=== PATIENT | female | born 1995 | race Caucasian/White ===

== ENCOUNTER 2016-11-27 08:52 | Emergency (ER) | payer MEDICAID ==
[2016-11-27] MEDS ORDERED: FAMOTIDINE 20 MG TABLET PO ONE (09:11)
[2016-11-27 09:34] LABS: ABSOLUTE EOSINOPHILS # (AUTO) 0.1 10^3/uL (0.0-0.6); ABSOLUTE LYMPHOCYTES (AUTO) 2.2 10^3/uL (0.5-4.7); ABSOLUTE MONOCYTES (AUTO) 0.5 10^3/uL (0.1-1.4); ABSOLUTE NEUT (AUTO) 4.2 10^3/uL (1.7-8.2); BASOPHILS % (AUTO) 0.6 % (0-2); EOSINOPHILS % (AUTO) 0.8 % (0-6); HEMATOCRIT 38.3 % (36.0-47.0); HEMOGLOBIN 13.2 g/dL (12.0-15.5); HGB HCT DIFFERENCE 1.3; LYMPHOCYTES % (AUTO) 31.5 % (13-45); MEAN CORPUSCULAR HEMOGLOBIN 30.9 pg (27.0-33.4); MEAN CORPUSCULAR HGB CONC 34.6 g/dL (32.0-36.0); MEAN CORPUSCULAR VOLUME 89 fl (80-97); MONOCYTES % (AUTO) 7.8 % (3-13); RED BLOOD COUNT 4.28 10^6/uL (3.72-5.28); RED CELL DISTRIBUTION WIDTH 13.1 % (11.5-14.0); SEGMENTED NEUTROPHILS % (AUTO) 59.3 % (42-78); WHITE BLOOD COUNT 7.1 10^3/uL (4.0-10.5)
[2016-11-27 09:56] LABS: ALANINE AMINOTRANSFERASE 21 U/L (9-52); ALBUMIN 4.1 g/dL (3.5-5.0); ALKALINE PHOSPHATASE 60 U/L (38-126); ANION GAP 9 (5-19); ASPARTATE AMINO TRANSFERASE 16 U/L (14-36); BILIRUBIN,DIRECT 0.3 mg/dL (0.0-0.4); BILIRUBIN,TOTAL 0.4 mg/dL (0.2-1.3); BLOOD UREA NITROGEN 10 mg/dL (7-20); CALCIUM 9.4 mg/dL (8.4-10.2); CARBON DIOXIDE 25 mmol/L (22-30); CHLORIDE 104 mmol/L (98-107); GLUCOSE 88 mg/dL (75-110); LIPASE 78.5 U/L (23-300); SODIUM 138.3 mmol/L (137-145); TOTAL PROTEIN 6.9 g/dL (6.3-8.2)
--- NOTE | 2016-11-27 10:08 | ER Document Report ---
ED General - General Chief Complaint: Abdominal Pain Stated Complaint: ABDOMINAL PAIN Time Seen by Provider: 11/27/16 08:58 TRAVEL OUTSIDE OF THE [place] IN LAST 30 DAYS: No - HPI Notes: Patient is a 21-year-old female who presents the ED complaining of intermittent epigastric pain/right upper quadrant pain, nausea w/o vomiting, intermittent diarrhea w/o blood/mucous, vaginal discharge, and home positive urine test. Her last menstrual period was 5-6 weeks ago. Patient has been one other time and has 1 living child with no miscarriages or abortions. She currently does not believe that she has any vaginal bleeding. She is still able to eat and drink, but does have a decreased appetite. The pain does not radiate and is described as a soreness with occasional sharp pain. Pt states that she feels the same way she did when she was the first time. Pt does have a h/o GERD with her last . Pt states that she also has frequency in urination. Patient does admit to smoking but denies any other illicit drug use. Denies any headache, fever, URI, sore throat, chest pain, palpitations, syncope, cough, shortness of breath, wheeze, dyspnea, vomiting, urinary retention, dysuria, hematuria, or rash. - Related Data Allergies/Adverse Reactions: bupropion [Bupropion] Allergy (Unknown, Verified 11/27/16 09:36) UNKNOWN guanfacine HCl [From Tenex] Allergy (Unknown, Verified 11/27/16 09:36) UNKNOWN diphenhydramine [From Benadryl] Allergy (Verified 11/27/16 09:36) hydroxyzine HCl [From Vistaril] Allergy (Verified 11/27/16 09:36) UNKNOWN hydroxyzine pamoate [From Vistaril] Allergy (Verified 11/27/16 09:36) UNKNOWN ondansetron [From Zofran (as hydrochloride)] Allergy (Verified 11/27/16 09:36) ziprasidone HCl [From Geodon] Allergy (Verified 11/27/16 09:36) UNKNOWN ziprasidone mesylate [From Geodon] Allergy (Verified 11/27/16 09:36) UNKNOWN nickel [Nickel] Adverse Reaction (Unknown, Verified 11/27/16 09:36) RASH Past Medical History - Social History Smoking Status: Current Every Day Smoker Chew tobacco use (# tins/day): No Frequency of alcohol use: None Drug Abuse: None Family History: Reviewed & Not Pertinent - Past Medical History Cardiac Medical History: Denies: Hx Coronary Artery Disease, Hx Heart Attack, Hx Hypertension Pulmonary Medical History: Reports: Hx Asthma Denies: Hx Bronchitis, Hx COPD, Hx Pneumonia Neurological Medical History: Denies: Hx Cerebrovascular Accident, Hx Seizures Musculoskeltal Medical History: Denies Hx Arthritis Psychiatric Medical History: Reports: Hx Depression - Immunizations Hx Diphtheria, Pertussis, Tetanus Vaccination: Yes Review of Systems - Review of Systems Notes: REVIEW OF SYSTEMS: CONSTITUTIONAL : Denies fever, chills, or sweats. Denies recent illness. EENT: Denies eye, ear, throat, or mouth pain or symptoms. Denies nasal or sinus congestion or discharge. Denies throat, tongue, or mouth swelling or difficulty swallowing. CARDIOVASCULAR: Denies chest pain. Denies palpitations or racing or irregular heart beat. Denies ankle edema. RESPIRATORY: Denies cough, cold, or chest congestion. Denies shortness of breath, difficulty breathing, or wheezing. GASTROINTESTINAL: see hpi GENITOURINARY: Denies difficulty urinating, painful urination, burning, frequency, blood in urine, or discharge. FEMALE GENITOURINARY: see hpi MUSCULOSKELETAL: Denies back or neck pain or stiffness. Denies joint pain or swelling. SKIN: Denies rash, lesions or sores. NEUROLOGICAL: Denies confusion or altered mental status. Denies passing out or loss of consciousness. Denies dizziness or lightheadedness. Denies headache. Denies weakness or paralysis or loss of use of either side. Denies problems with gait or speech. Denies sensory loss, numbness, or tingling. Denies seizures. PSYCHIATRIC: Denies anxiety or stress. Denies depression, suicidal ideation, or homicidal ideation. ALL OTHER SYSTEMS REVIEWED AND NEGATIVE. Dictation was performed using [employer] voice recognition software Physical Exam - Vital signs Vitals: Temp Pulse Resp BP Pulse Ox 98.7 F 69 12 115/63 100 11/27/16 08:52 11/27/16 08:52 11/27/16 08:52 11/27/16 08:52 11/27/16 08:52 Notes: PHYSICAL EXAMINATION: GENERAL: Well-appearing, well-nourished and in no acute distress. LUNGS: Breath sounds clear to auscultation bilaterally and equal. No wheezes rales or rhonchi. HEART: Regular rate and rhythm without murmurs ABDOMEN: Soft, nondistended abdomen. No guarding, no rebound. No masses appreciated. Normal bowel sounds present. CVA tenderness negative bilaterally. + mild tenderness to the RUQ and epigastrum Female : No inguinal adenopathy. External genitalia without erythema. + skin colored round papules noted. Vaginal mucosa pink white milky discharge. Difficult to visualize cervix due to abundant milky discharge. Uterus is smooth. No adnexal tenderness. Musculoskeletal: LE's b/l: FROM to passive/active. Strength 5+/5. Extremities: No cyanosis/clubbing/edema b/l. Peripheral pulses 2+. Capillary refill less than 3 seconds. NEUROLOGICAL: Normal speech, normal gait. Normal sensory, motor exams PSYCH: Normal mood, normal affect. SKIN: Warm, Dry, normal turgor, no rashes or lesions noted. Course - Re-evaluation Re-evalutation: 11/27/16 11:22 Pepcid given, no changes in symptoms. Pt states that she feels like she is just hungry and wants to leave sooner than later 11/27/16 12:12 Patient is an afebrile, well-hydrated, 21-year-old female who presents the ED with a 5 week that was confirmed today, BV, and Trich. Vitals are stable. PE otherwise unremarkable. CBC, CMP, lipase, urinalysis are unremarkable. Serum qualitative was positive. TVUS shows gestational sack 5wk 2d with serum quant of 3,213.30. US RUQ/Epigastrum unremarkable. Wet mount shows BV and Trichomonas. patient is tolerating p.o. intake. Pepcid 20 mg was given p.o. today. Zithromax 1 g and Rocephin 250 mg given today as precautionary. Chlamydia/gonorrhea test pending. I would like patient to call in 1 day for her results unless someone calls prior. Low suspicion/risk for acute appendicitis, bowel obstruction, acute cholecystitis, acute cholangitis, perforated diverticulitis, incarcerated hernia, pancreatitis , perforated ulcer, peritonitis, sepsis, pelvic inflammatory disease, ectopic , tubo-ovarian abscess, ovarian torsion, or other systemic emergent condition at this time. Patient is aware that her condition can change from initial presentation and she needs to monitor symptoms closely and seek medical attention if any acute changes. I will send her home with yl to take BID x7 days. Conservative measures otherwise for symptoms. Recheck with OBGYN in 2 -3 days. Recheck with your PCM this week. Return to the ED with any worsening/ concerning symptoms otherwise as reviewed in discharge. Patient is in agreement. - Vital Signs Vital signs: Temp Pulse Resp BP Pulse Ox 98.7 F 69 12 115/63 100 11/27/16 08:52 11/27/16 08:52 11/27/16 08:52 11/27/16 08:52 11/27/16 08:52 - Laboratory Result Diagrams: 11/27/16 09:15 11/27/16 09:15 Laboratory results interpreted by me: 11/27/16 11/27/16 09:15 09:15 Serum HCG, Qual POSITIVE H Beta HCG, Quant 3213.30 H Procedures - Pelvic Exam Pelvic exam Time completed: 11:20 Cultures obtained: Yes Wet prep obtained: Yes POC sent to lab: Yes Bimanual exam performed: Yes - neg Witnessed by: Female PCT Discharge - Discharge Clinical Impression: Bacterial vaginosis, Trichomonas infection Qualifiers: Weeks of gestation: less than 8 weeks Qualified Code(s): Z3A.01 - Less than 8 weeks gestation of Condition: Stable Disposition: HOME, SELF-CARE Instructions: Vaginosis, Bacterial ([facility]), Trichomonas Infection ([facility]), ([facility]), Metronidazole ([facility]) Additional Instructions: Push fluids (i.e. water, cranberry juice) Proper hygenic technique Keep the skin clean Safe sexual practices with condoms everytime Tylenol/ibuprofen as needed Check in with the health department this week for further testing and care* Your chlamydia/Ghon test are pending and you will be notified if positive results; you may call in 1 day for the results as well You have been given follow up instructions including low cost follow up with one of the local primary care offices. Follow up with them tomorrow for further care and reevaluation. Return immediately if symptoms worsen F/u with your PCM in 2-3 days for a recheck Return to the ED with any development of LEIJA/fever, trouble with vision, eye redness, worsening pain, urethral discharge, urinary retention, blood in the urine, flank pain, abdominal pain, n/v, Chest Pain, shortness of breath, joint pains, trouble breathing, or any other worsening/concerning symptoms as needed otherwise. Prescriptions: Metronidazole [Flagyl] 500 mg PO BID #14 tablet Referrals: [facility] [Provider Group] - Follow up as needed [facility] [Provider Group] - Follow up as needed [facility] [Provider Group] - Follow up in 1 week
--- NOTE | 2016-11-27 10:57 | RADIOLOGY REPORT (SQ) ---
EXAM DESCRIPTION: U/S ABDOMEN LIMITED W/O DOP COMPLETED DATE/TIME: 11/27/2016 10:45 am REASON FOR STUDY: RUQ/Epigastric pain COMPARISON: None. TECHNIQUE: Dynamic and static grayscale images acquired of the right upper quadrant and recorded on PACS. Additional selected color Doppler and spectral images recorded. LIMITATIONS: Study limited due to acoustical interference from fat or from air in the bowel. FINDINGS: PANCREAS: Visualized pancreas and duct normal. Parts of pancreas poorly seen secondary to acoustical interference from fat or from air in the bowel. LIVER: No masses. Echotexture normal. LIVER VASCULATURE: Normal directional flow of the main portal vein and hepatic veins. GALLBLADDER: No stones. Normal wall thickness. No pericholecystic fluid. ULTRASOUND-DETECTED MALONEY'S SIGN: Negative. INTRAHEPATIC DUCTS AND COMMON DUCT: CBD and intrahepatic ducts normal caliber. No filling defects. INFERIOR VENA CAVA: Normal flow. AORTA: No aneurysm. RIGHT KIDNEY: Normal size. Normal echogenicity. No solid or suspicious masses. No hydronephrosis. No calcifications. PERITONEAL CAVITY AND RIGHT PLEURAL SPACE: No ascites or effusions. OTHER: No other significant finding. IMPRESSION: NORMAL RIGHT UPPER QUADRANT ULTRASOUND. PANCREAS PARTIALLY OBSCURED BY GAS. TECHNICAL DOCUMENTATION: JOB ID: [id number] [employer]- All Rights Reserved
--- NOTE | 2016-11-27 11:02 | RADIOLOGY REPORT (SQ) ---
EXAM DESCRIPTION: U/S OB TRANSVAG W/DOPPLER COMPLETED DATE/TIME: 11/27/2016 10:52 am REASON FOR STUDY: vaginal discharge, recent + preg test COMPARISON: None. TECHNIQUE: Transvaginal static and realtime grayscale images acquired of the pelvis. Additional lucy cted spectral and color Doppler images recorded. All images stored on PACs. bHCG: Not available. LIMITATIONS: None. FINDINGS: UTERUS: No masses. No anomalies. GESTATIONAL SAC: Small gestational sac corresponding to a 5 week 2 day gestation. YOLK SAC: No. POLE: No. RIGHT ADNEXA: Normal ovary with normal vascular flow. No adnexal free fluid. No adnexal masses. LEFT ADNEXA: Normal ovary with normal vascular flow. No adnexal free fluid. No adnexal masses. FREE FLUID: None. OTHER: No other significant finding. IMPRESSION: POSSIBLE EARLY INTRAUTERINE . BHCG LEVEL NOT AVAILABLE FOR CORRELATION WITH US FINDINGS. CONSIDER F/U BHCG AND/OR ULTRASOUND FOR VERIFICATION AND TO EXCLUDE ECTOPIC . Trimester of : First - 0 to 13 weeks. TECHNICAL DOCUMENTATION: JOB ID: [id number] [employer]- All Rights Reserved
[2016-11-27] MEDS ORDERED: CEFTRIAXONE INJ 1000 MG VIAL IM ONE (11:21)
[2016-11-27] MEDS ORDERED: LIDOCAINE 1% INJ-PF (10 MG/ML) 30 ML SDV INJ ONE (11:21)
[2016-11-27] MEDS ORDERED: AZITHROMYCIN 250 MG TABLET PO ONE (11:21)
[2016-11-27 11:32] LABS: ADD ON TESTING BLD IN LAB ACKNOWLEDGE
[2016-11-27 11:34] LABS: APPEARANCE,URINE CLEAR; BILIRUBIN,URINE NEGATIVE (NEGATIVE); GLUCOSE, URINE NEGATIVE (NEGATIVE); KETONES,URINE NEGATIVE (NEGATIVE); LEUKOCYTE ESTERASE,URINE NEGATIVE (NEGATIVE); NITRITE,URINE NEGATIVE (NEGATIVE); PROTEIN,URINE NEGATIVE (NEGATIVE); URINE SPECIFIC GRAVITY 1.014; UROBILINOGEN,URINE NEGATIVE mg/dL (<2.0)
[2016-11-27 12:26] VITALS: BP 118/59
[2016-11-27 13:37] LABS: CHLAM PCR NOT DETECTED (NOT DETECT)
== END 2016-11-27 12:26 | disposition home or self-care (01) ==
LOC: ER 08:52
DX: N76.0 Acute vaginitis (principal); B96.89 Other specified bacterial agents as the cause of diseases classified elsewhere; A59.01 Trichomonal vulvovaginitis; R10.9 Unspecified abdominal pain; R10.13 Epigastric pain; R11.0 Nausea; N89.8 Other specified noninflammatory disorders of vagina; R35.0 Frequency of micturition; F17.200 Nicotine dependence, unspecified, uncomplicated; Z3A.01 Less than 8 weeks gestation of pregnancy
CPT/HCPCS: 99284; 96372; 36415; 87210; 84702; 83690; 84703; 85025; 80053; 81001; 87491; 87591; 76817; 76705; 93976; J3490 ×2; Q0144; J0696

== ENCOUNTER 2017-03-13 01:32 | Emergency (ER) | payer MEDICAID ==
[2017-03-13] MEDS ORDERED: LIDOCAINE 2% VISCOUS SOLN 20 ML UDCUP PO ONE (02:30)
[2017-03-13] MEDS ORDERED: METOCLOPRAMIDE HCL ORAL SOLN 10 MG/10 ML UDCUP PO ONE (02:30)
[2017-03-13] MEDS ORDERED: MAG HYDROX/AL HYDROX/SIMETH SUSP 30 ML UDCUP PO ONE (02:30)
[2017-03-13] MEDS ORDERED: FAMOTIDINE 20 MG TABLET PO ONE (02:30)
[2017-03-13 02:32] LABS: APPEARANCE,URINE SLIGHTLY-CLOUDY; BILIRUBIN,URINE NEGATIVE (NEGATIVE); COLOR,URINE YELLOW; GLUCOSE, URINE NEGATIVE (NEGATIVE); KETONES,URINE NEGATIVE (NEGATIVE); LEUKOCYTE ESTERASE,URINE NEGATIVE (NEGATIVE); NITRITE,URINE POSITIVE (NEGATIVE); PROTEIN,URINE NEGATIVE (NEGATIVE); URINE SPECIFIC GRAVITY 1.023; UROBILINOGEN,URINE NEGATIVE mg/dL (<2.0)
--- NOTE | 2017-03-13 02:33 | ER Document Report ---
HPI - HPI Pain Level: 3 Notes: Patient is a 22-year-old female who is approximately 20 weeks who presents to the ED complaining of epigastric pain, burning sensation, nasal congestion/discharge, dry nonproductive cough. Patient does have history of GERD and gastritis which she is not taking any medications for. Patient states that after she eats she feels more burning sensation in that area. Patient states that the pain does not radiate otherwise. Patient's URI symptoms have been ongoing 1 week. She is still eating and drinking without any difficulties. She is urinating normally and having normal bowel movements. Patient has not noticed any pelvic cramping, vaginal odor/bleeding/discharge. Denies any headache, fever, neck pain, sore throat, chest pain, palpitations, syncope, shortness of breath, wheeze, dyspnea, nausea/vomiting/diarrhea, urinary retention, dysuria, hematuria, or rash. Pt does continue to have intermittent n/v with her . - ROS Notes: REVIEW OF SYSTEMS: CONSTITUTIONAL : Denies fever, chills, or sweats. Denies recent illness. EENT: see hpi CARDIOVASCULAR: Denies chest pain. Denies palpitations or racing or irregular heart beat. Denies ankle edema. RESPIRATORY: see hpi. Denies shortness of breath, difficulty breathing, or wheezing. GASTROINTESTINAL: see hpi. Denies blood in vomitus, stools, or per rectum. Denies black, tarry stools. Denies constipation. GENITOURINARY: Denies difficulty urinating, painful urination, burning, frequency, blood in urine, or discharge. FEMALE GENITOURINARY: Denies vaginal bleeding, heavy or abnormal periods, irregular periods. Denies vaginal discharge or odor. MUSCULOSKELETAL: Denies back or neck pain or stiffness. Denies joint pain or swelling. SKIN: Denies rash, lesions or sores. NEUROLOGICAL: Denies confusion or altered mental status. Denies passing out or loss of consciousness. Denies dizziness or lightheadedness. Denies headache. Denies weakness or paralysis or loss of use of either side. Denies problems with gait or speech. Denies sensory loss, numbness, or tingling. Denies seizures. ALL OTHER SYSTEMS REVIEWED AND NEGATIVE. Dictation was performed using [employer] voice recognition software - REPRODUCTIVE Reproductive: REPORTS: : - DERM Skin Color: Normal, [place] Past Medical History - Social History Smoking Status: Unknown if Ever Smoked Family History: Reviewed & Not Pertinent Patient has suicidal ideation: No Patient has homicidal ideation: No - Past Medical History Cardiac Medical History: Denies: Hx Coronary Artery Disease, Hx Heart Attack, Hx Hypertension Pulmonary Medical History: Reports: Hx Asthma Denies: Hx Bronchitis, Hx COPD, Hx Pneumonia Neurological Medical History: Denies: Hx Cerebrovascular Accident, Hx Seizures Renal/ Medical History: Denies: Hx Peritoneal Dialysis Musculoskeltal Medical History: Denies Hx Arthritis Psychiatric Medical History: Reports: Hx Depression - Immunizations Hx Diphtheria, Pertussis, Tetanus Vaccination: Yes Vertical Provider Document - CONSTITUTIONAL Agree With Documented VS: Yes Notes: PHYSICAL EXAMINATION: GENERAL: Well-appearing, well-nourished and in no acute distress. A&Ox4 HEAD: Atraumatic, normocephalic. EYES: Pupils equal round and reactive to light, extraocular movements intact, sclera anicteric, conjunctiva are normal. ENT: EAC clear b/l. TM's intact b/l without erythema, fluid, or perforation. Nares patent and with clear discharge. oropharynx mild erythema without exudates. 2+ tonsilar hypertrophy without erythema or exudate. No palatine shift. Uvula midline. No tongue protrusion. No drooling, hoarseness, or airway compromise. Moist mucous membranes. No sinus tenderness. NECK: Normal range of motion, supple without lymphadenopathy. No rigidity/ meningismus. LUNGS: Breath sounds clear to auscultation bilaterally and equal. No wheezes rales or rhonchi. HEART: Regular rate and rhythm without murmurs, rubs, gallops. ABDOMEN: Soft, nontender, nondistended abdomen. No guarding, no rebound. No masses appreciated. Normal bowel sounds present. No CVA tenderness bilaterally. No hepatosplenomegaly. NEUROLOGICAL: Normal speech, normal gait. Normal sensory, motor exams PSYCH: Normal mood, normal affect. SKIN: Warm, Dry, normal turgor, no rashes or lesions noted. - INFECTION CONTROL TRAVEL OUTSIDE OF THE [place] IN LAST 30 DAYS: No - RESPIRATORY O2 Sat by Pulse Oximetry: 100 Course - Re-evaluation Re-evalutation: 03/13/17 02:36 Patient is an afebrile, well-hydrated, 22-year-old female who presents the ED with suspected GERD as well as acute URI, suspect viral at this time, and UTI. Vitals are stable. PE is otherwise unremarkable. see UA results, UC pending. No labs or imaging warranted at this time based on H&P. GI cocktail was provided which did help/improve symptoms. Pepcid 20 mg was also given p.o. I will send her home with a prescription of Pepcid and carafate which she may use as needed. Low suspicion for any ACS, PE, pneumothorax, pericarditis, dissection, respiratory compromise, acute abdomen, severe dehydration, sepsis, meningitis, or other systemic emergent condition at this time. Patient is aware that her condition can change from initial presentation and she needs to monitor symptoms closely and seek medical attention for any acute changes. Recommend conservative measures for symptoms. Keflex rx for UTI. Recheck with your PCM in 3-5 days. Return to the ED with any worsening/concerning symptoms otherwise as reviewed in discharge. Patient is in agreement. - Vital Signs Vital signs: Temp Pulse Resp BP Pulse Ox 98.7 F 60 16 113/57 L 100 03/13/17 01:42 03/13/17 01:42 03/13/17 01:42 03/13/17 01:42 03/13/17 01:42 Discharge - Discharge Clinical Impression: Acute URI GERD (gastroesophageal reflux disease) Qualifiers: Esophagitis presence: without esophagitis Qualified Code(s): K21.9 - Gastro- esophageal reflux disease without esophagitis UTI (urinary tract infection) Qualifiers: Urinary tract infection type: site unspecified Hematuria presence: without hematuria Qualified Code(s): N39.0 - Urinary tract infection, site not specified Condition: Stable Disposition: HOME, SELF-CARE Instructions: Reflux Disease (GERD) ([facility]), Upper Respiratory Illness ([facility]), Urinary Tract Infection ([facility]) Additional Instructions: Maintain adequate fluid intake Take meds as directed tylenol/ibuprofen as needed over the counter cold medication as needed for symptoms Humidified air may help with a cough F/u: with your PCM in 3-5 days for a recheck Recheck with OBGYN this week. Consider consult with Gastroenterology if needed for ongoing/worsening symptoms as well Return to the ED with any fever, worsening pain, chest pain, palpitations, syncope, worsening LEIJA, neck pain/stiffness, shortness of breath, wheezing, drooling, trouble swallowing/breathing, abdominal pain, n/v/d, rash, or worsening/concerning symptoms otherwise. Prescriptions: Cephalexin Monohydrate [Keflex 500 mg Capsule] 500 mg PO BID #14 capsule Famotidine [Pepcid 20 mg Tablet] 20 mg PO BID #30 tablet Sucralfate [Carafate] 1 gm PO QID PRN #420 ml PRN Reason: [facility]errals[facility]] - Follow up as needed HERMELINDO WEBER MD [ACTIVE STAFF] - Follow up as needed
[2017-03-13] MEDS ORDERED: CEPHALEXIN 500 MG CAPSULE PO ONE (02:41)
[2017-03-13 03:41] VITALS: BP 113/47
== END 2017-03-13 03:41 | disposition home or self-care (01) ==
LOC: ER 01:32
DX: O99.619 Diseases of the digestive system complicating pregnancy, unspecified trimester (principal); K21.9 Gastro-esophageal reflux disease without esophagitis; O23.40 Unspecified infection of urinary tract in pregnancy, unspecified trimester; O99.519 Diseases of the respiratory system complicating pregnancy, unspecified trimester; J06.9 Acute upper respiratory infection, unspecified; J35.1 Hypertrophy of tonsils; J45.909 Unspecified asthma, uncomplicated; O26.899 Other specified pregnancy related conditions, unspecified trimester; R10.13 Epigastric pain; Z3A.00 Weeks of gestation of pregnancy not specified
CPT/HCPCS: 99283; 87086; 81025; 87088; 81001; 87186; J3490 ×4; 36415

== ENCOUNTER 2017-04-04 20:33 | Outpatient (CLI) | payer MEDICAID ==
[2017-04-04 21:05] LABS: APPEARANCE,URINE CLEAR; BILIRUBIN,URINE NEGATIVE (NEGATIVE); COLOR,URINE YELLOW; GLUCOSE, URINE NEGATIVE (NEGATIVE); KETONES,URINE NEGATIVE (NEGATIVE); LEUKOCYTE ESTERASE,URINE TRACE (NEGATIVE); NITRITE,URINE NEGATIVE (NEGATIVE); PROTEIN,URINE NEGATIVE (NEGATIVE); UROBILINOGEN,URINE NEGATIVE mg/dL (<2.0)
[2017-04-04 21:19] LABS: URINE AMPHETAMINES SCREEN NEGATIVE; URINE BARBITURATES SCREEN NEGATIVE; URINE BENZODIAZEPINES SCREEN NEGATIVE; URINE COCAINE SCREEN NEGATIVE; URINE MARIJUANA (THC) SCREEN NEGATIVE; URINE METHADONE SCREEN NEGATIVE; URINE PHENCYCLIDINE SCREEN NEGATIVE
[2017-04-04 21:26] LABS: ABSOLUTE BASOPHILS # (AUTO) 0.1 10^3/uL (0.0-0.2); ABSOLUTE LYMPHOCYTES (AUTO) 2.7 10^3/uL (0.5-4.7); ABSOLUTE MONOCYTES (AUTO) 0.6 10^3/uL (0.1-1.4); ABSOLUTE NEUT (AUTO) 8.2 10^3/uL (1.7-8.2); BASOPHILS % (AUTO) 0.8 % (0-2); EOSINOPHILS % (AUTO) 0.4 % (0-6); HEMATOCRIT 34.2 % (36.0-47.0); HEMOGLOBIN 11.7 g/dL (12.0-15.5); MEAN CORPUSCULAR HEMOGLOBIN 30.8 pg (27.0-33.4); MEAN CORPUSCULAR HGB CONC 34.2 g/dL (32.0-36.0); MEAN CORPUSCULAR VOLUME 90 fl (80-97); MONOCYTES % (AUTO) 4.9 % (3-13); PLATELET COUNT 219 10^3/uL (150-450); RED BLOOD COUNT 3.79 10^6/uL (3.72-5.28); RED CELL DISTRIBUTION WIDTH 13.2 % (11.5-14.0); SEGMENTED NEUTROPHILS % (AUTO) 70.9 % (42-78); TOTAL CELLS COUNTED % (AUTO) 100 %; WHITE BLOOD COUNT 11.6 10^3/uL (4.0-10.5)
[2017-04-04 22:25] LABS: RUBELLA INTERPRETATION NEGATIVE
[2017-04-06 05:40] LABS: HEPATITIS C VIRUS AB <0.1 s/co ratio (0.0-0.9)
[2017-04-06 07:03] LABS: HEPATITS B SURFACE ANTIGEN Negative (Negative)
== END 2017-04-04 21:57 | disposition home or self-care (01) ==
LOC: LC 20:33
PROVIDERS: ATTEND Obstetrics & Gynecology Gynecology
DX: O26.892 Other specified pregnancy related conditions, second trimester (principal); R10.9 Unspecified abdominal pain; E86.0 Dehydration; Z3A.22 22 weeks gestation of pregnancy
CPT/HCPCS: 36415; 80307; 81001; 85025; 86592; 86701; 86762; 86803; 86804; 86850; 86900; 86901; 87340

== ENCOUNTER 2017-05-04 19:33 | Outpatient (CLI) | payer MEDICAID ==
[2017-05-04 20:41] LABS: AMNISURE (ROM) NEGATIVE (NEGATIVE)
[2017-05-04 21:00] LABS: AMORPHOUS SEDIMENT,URINE TRACE /HPF; APPEARANCE,URINE CLOUDY; BILIRUBIN,URINE NEGATIVE (NEGATIVE); COLOR,URINE YELLOW; GLUCOSE, URINE NEGATIVE (NEGATIVE); KETONES,URINE TRACE mg/dL (NEGATIVE); LEUKOCYTE ESTERASE,URINE LARGE (NEGATIVE); NITRITE,URINE NEGATIVE (NEGATIVE); PROTEIN,URINE NEGATIVE (NEGATIVE)
[2017-05-04 21:18] LABS: URINE AMPHETAMINES SCREEN NEGATIVE; URINE BARBITURATES SCREEN NEGATIVE; URINE BENZODIAZEPINES SCREEN NEGATIVE; URINE COCAINE SCREEN NEGATIVE; URINE MARIJUANA (THC) SCREEN NEGATIVE; URINE METHADONE SCREEN NEGATIVE; URINE PHENCYCLIDINE SCREEN NEGATIVE
[2017-05-04] MEDS ORDERED: RINGERS SOLUTION,LACTATED 500 ML IV PRN (21:45)
--- NOTE | 2017-05-04 21:57 | RADIOLOGY REPORT (SQ) ---
EXAM DESCRIPTION: U/S OB LIMITED COMPLETED DATE/TIME: 05/04/2017 9:48 pm REASON FOR STUDY: cervical length, placenta location, presentation COMPARISON: None. TECHNIQUE: Limited transabdominal and transvaginal grayscale ultrasound for evaluation of specific r equested obstetrical parameters. LIMITATIONS: None. FINDINGS: CERVICAL LENGTH: 3.2 cm. Closed. SNEHA: Fluid not assessed. FHR: Cardiac activity not documented. PRESENTATION: Cephalic. OTHER: Placenta anterior without evidence of abruption. No evidence of previa. IMPRESSION: LIMITED OBSTETRICAL ULTRASOUND WITH MEASURED PARAMETERS DELINEATED ABOVE. Trimester of : Second trimester - 13 weeks 1 day to 27 weeks 6 days. TECHNICAL DOCUMENTATION: JOB ID: [id number] [employer]- All Rights Reserved
[2017-05-04 22:25] LABS: CHLAM PCR DETECTED (NOT DETECT); GON PCR NOT DETECTED (NOT DETECT)
[2017-05-04] MEDS ORDERED: ACETAMINOPHEN 325 MG TABLET ONE (22:48)
[2017-05-04 22:58] LABS: T.VAGINALIS (WET MOUNT) NO TRICHOMONAS SEEN; WBCS (WET MOUNT) RARE WBCS SEEN; YEAST (WET MOUNT) NO YEAST SEEN
[2017-05-04] MEDS: RINGERS SOLUTION,LACTATED 1,000 ML IV PRN ×2 (23:11→23:12)
[2017-05-04] MEDS ORDERED: CEFTRIAXONE 1 GM/D5W RTU 1 GM/50 ML RTUPB IV ONE (23:18)
[2017-05-04] MEDS ORDERED: CEFTRIAXONE 2 GM/D5W RTU 2 GM/50 ML RTUPB IV ONE (23:20)
[2017-05-04] MEDS ORDERED: AZITHROMYCIN 250 MG TABLET PO SCH (23:30)
[2017-05-04] MEDS ORDERED: CEFTRIAXONE INJ 1000 MG VIAL ONE (23:35)
[2017-05-04] MEDS ORDERED: AZITHROMYCIN 250 MG TABLET ONE (23:38)
[2017-05-04] MEDS ORDERED: PROMETHAZINE HCL INJ 25 MG/1 ML VIAL IV ONE (23:56)
[2017-05-04] MEDS ORDERED: PROMETHAZINE HCL INJ 25 MG/1 ML VIAL ONE (23:58)
[2017-05-05] MEDS ORDERED: PROMETHAZINE HCL INJ 25 MG/1 ML VIAL ONE (00:02)
== END 2017-05-05 00:25 | disposition home or self-care (01) ==
LOC: LC 19:33
PROVIDERS: ATTEND Student in an Organized Health Care Education/Training Program
PROC: 4A1HXCZ Monitoring of Products of Conception, Cardiac Rate, External Approach (ICD-10-PCS; principal; 2017-05-04)
DX: O98.312 Other infections with a predominantly sexual mode of transmission complicating pregnancy, second trimester (principal); A56.2 Chlamydial infection of genitourinary tract, unspecified; O47.02 False labor before 37 completed weeks of gestation, second trimester; Z3A.27 27 weeks gestation of pregnancy
CPT/HCPCS: 84112; 87086; 87210; 87077; 81001; 87081; 80307; 87491; 87591; 76815; 59899; Q0144; J2550; J0696 ×2

== ENCOUNTER 2017-06-06 14:18 | Outpatient (CLI) | payer MEDICAID ==
[2017-06-06 15:05] LABS: APPEARANCE,URINE SLIGHTLY-CLOUDY; BILIRUBIN,URINE NEGATIVE (NEGATIVE); CALCIUM OXALATE CRYSTALS,URINE FEW /HPF; COLOR,URINE YELLOW; GLUCOSE, URINE NEGATIVE (NEGATIVE); KETONES,URINE NEGATIVE (NEGATIVE); LEUKOCYTE ESTERASE,URINE SMALL (NEGATIVE); NITRITE,URINE NEGATIVE (NEGATIVE); PROTEIN,URINE NEGATIVE (NEGATIVE); URINE SPECIFIC GRAVITY 1.014; UROBILINOGEN,URINE NEGATIVE mg/dL (<2.0)
[2017-06-06 15:15] LABS: URINE AMPHETAMINES SCREEN NEGATIVE; URINE BARBITURATES SCREEN NEGATIVE; URINE BENZODIAZEPINES SCREEN NEGATIVE; URINE COCAINE SCREEN NEGATIVE; URINE MARIJUANA (THC) SCREEN NEGATIVE; URINE METHADONE SCREEN NEGATIVE; URINE PHENCYCLIDINE SCREEN NEGATIVE
[2017-06-06 15:27] LABS: RBCS (WET MOUNT) FEW RBCS SEEN; T.VAGINALIS (WET MOUNT) NO TRICHOMONAS SEEN; WBCS (WET MOUNT) 1+ WBCS SEEN; YEAST (WET MOUNT) NO YEAST SEEN
[2017-06-06 15:28] LABS: BACTERIA (WET MOUNT) 3+ BACTERIA SEEN
[2017-06-06 16:51] LABS: CHLAM PCR NOT DETECTED (NOT DETECT); GON PCR NOT DETECTED (NOT DETECT)
--- NOTE | 2017-06-06 16:57 | L&D Progress Notes ---
PROGRESS NOTES Datetime Report Generated by CPN: 06/06/2017 16:56 PROGRESS NOTE Vital Signs : Reviewed; Within Normal Limits Comment: not getting care. discussed at length the importance of regular PNC. CNM called transportation planner and the health dept. number to social worker clinical provided. pt c/o ligament pain. vaginal exam reveals copious amount white adherent discharge. rx for flagyl 500mg bid x 7 days. not feening contractions, PTL precautions. FETUS A FHR Comments: AGA : 31.0 SIGNATURE SIGNATURE: [id number] Assignment: Irving Montano MD Signature: with User ID: [email or web address] : with User ID: [email or web address]
== END 2017-06-06 17:21 | disposition home or self-care (01) ==
LOC: LC 14:18
PROVIDERS: ATTEND Obstetrics & Gynecology
PROC: 4A1HXCZ Monitoring of Products of Conception, Cardiac Rate, External Approach (ICD-10-PCS; principal; 2017-06-06)
DX: O47.03 False labor before 37 completed weeks of gestation, third trimester (principal); O99.89 Other specified diseases and conditions complicating pregnancy, childbirth and the puerperium; N89.8 Other specified noninflammatory disorders of vagina; O09.33 Supervision of pregnancy with insufficient antenatal care, third trimester; Z3A.31 31 weeks gestation of pregnancy
CPT/HCPCS: 80307; 81001; 87210; 87491; 87591

== ENCOUNTER 2017-06-12 12:25 | Outpatient (CLI) | payer MEDICAID ==
[2017-06-12 13:09] LABS: AMNISURE (ROM) NEGATIVE (NEGATIVE)
[2017-06-12 13:11] LABS: APPEARANCE,URINE SLIGHTLY-CLOUDY; BILIRUBIN,URINE NEGATIVE (NEGATIVE); COLOR,URINE YELLOW; GLUCOSE, URINE NEGATIVE (NEGATIVE); KETONES,URINE NEGATIVE (NEGATIVE); LEUKOCYTE ESTERASE,URINE MODERATE (NEGATIVE); NITRITE,URINE NEGATIVE (NEGATIVE); PROTEIN,URINE NEGATIVE (NEGATIVE); URINE SPECIFIC GRAVITY 1.017; UROBILINOGEN,URINE NEGATIVE mg/dL (<2.0)
[2017-06-12 13:43] LABS: URINE AMPHETAMINES SCREEN NEGATIVE; URINE BARBITURATES SCREEN NEGATIVE; URINE BENZODIAZEPINES SCREEN NEGATIVE; URINE COCAINE SCREEN NEGATIVE; URINE MARIJUANA (THC) SCREEN NEGATIVE; URINE METHADONE SCREEN NEGATIVE; URINE PHENCYCLIDINE SCREEN NEGATIVE
--- NOTE | 2017-06-12 14:21 | RADIOLOGY REPORT (SQ) ---
EXAM DESCRIPTION: U/S OB LIMITED COMPLETED DATE/TIME: 06/12/2017 1:54 pm REASON FOR STUDY: cervical length, patient colette COMPARISON: Limited OB ultrasound 05/04/2017 TECHNIQUE: Limited transvaginal and transabdominal grayscale ultrasound for evaluation of specific r equested obstetrical parameters. LIMITATIONS: None. FINDINGS: CERVICAL LENGTH: 3.1 cm Closed. SNEHA: 11.4 cm. FHR: 145 beats per minute. PRESENTATION: Cephalic. OTHER: No other significant findings. IMPRESSION: LIMITED OBSTETRICAL ULTRASOUND WITH MEASURED PARAMETERS DELINEATED ABOVE. Trimester of : Third trimester - 28 weeks to delivery. TECHNICAL DOCUMENTATION: JOB ID: [id number] [employer]- All Rights Reserved Reading location - IP/workstation name: [facility]
--- NOTE | 2017-06-12 14:50 | Non Stress Test Report ---
Non Stress Test Datetime Report Generated by CPN: 06/12/2017 14:50 DEMOGRAPHIC EGA NST: 32.4 INDICATION Indication for Study: Ordered by Provider MONITORING Monitor Explained: Monitor Explained; Test Explained; Patient Verbalized Understanding Time on Monitor: 06/12/2017 12:52 Time off Monitor: 06/12/2017 13:31 NST Duration: 39 NST INTERVENTIONS NST Interventions: PO Hydration; Reposition Patient Physician Notified NST: H.Altaf, CNM BABY A: [id number] BABY A Movement : Present Contraction Frequency : None FHR Baseline : 130 Accelerations : 15X15 Decelerations : None Variability : Moderate 6-25bpm NST Review: Meets Criteria for Reactive NST NST Review and Verified By : LUCIA Schwartz Results: Reactive NST REPORT Report Trigger: Send Report
== END 2017-06-12 14:47 | disposition home or self-care (01) ==
LOC: MERGE 12:25 → LC 12:25
PROVIDERS: ATTEND Obstetrics & Gynecology
PROC: 4A1HXCZ Monitoring of Products of Conception, Cardiac Rate, External Approach (ICD-10-PCS; principal; 2017-06-12)
DX: O47.03 False labor before 37 completed weeks of gestation, third trimester (principal); Z3A.32 32 weeks gestation of pregnancy
CPT/HCPCS: 59025; 76815; 80307; 81001; 84112

== ENCOUNTER 2017-06-25 19:23 | Outpatient (CLI) | payer MEDICAID ==
[2017-06-25 20:22] LABS: BILIRUBIN,URINE NEGATIVE (NEGATIVE); CALCIUM OXALATE CRYSTALS,URINE MODERATE /HPF; COLOR,URINE YELLOW; GLUCOSE, URINE NEGATIVE (NEGATIVE); KETONES,URINE TRACE mg/dL (NEGATIVE); LEUKOCYTE ESTERASE,URINE MODERATE (NEGATIVE); NITRITE,URINE NEGATIVE (NEGATIVE); PROTEIN,URINE 30 mg/dL (NEGATIVE); URINE SPECIFIC GRAVITY 1.025
[2017-06-25 20:26] LABS: APPEARANCE,URINE SLIGHTLY HAZY
[2017-06-25 20:35] LABS: URINE AMPHETAMINES SCREEN NEGATIVE; URINE BARBITURATES SCREEN NEGATIVE; URINE BENZODIAZEPINES SCREEN NEGATIVE; URINE COCAINE SCREEN NEGATIVE; URINE MARIJUANA (THC) SCREEN NEGATIVE; URINE METHADONE SCREEN NEGATIVE; URINE PHENCYCLIDINE SCREEN NEGATIVE
[2017-06-25] MEDS ORDERED: PROMETHAZINE HCL INJ 25 MG/1 ML VIAL IV ONE (20:39)
[2017-06-25] MEDS ORDERED: PROMETHAZINE HCL INJ 25 MG/1 ML VIAL ONE (20:42)
[2017-06-25] MEDS ORDERED: RINGERS SOLUTION,LACTATED 1,000 ML IV PRN (21:22)
== END 2017-06-25 21:45 | disposition home or self-care (01) ==
LOC: LC 19:23
PROVIDERS: ATTEND Obstetrics & Gynecology
PROC: 4A1HXCZ Monitoring of Products of Conception, Cardiac Rate, External Approach (ICD-10-PCS; principal; 2017-06-25)
DX: O26.893 Other specified pregnancy related conditions, third trimester (principal); Z3A.34 34 weeks gestation of pregnancy; R10.9 Unspecified abdominal pain; E86.0 Dehydration
CPT/HCPCS: 59025; 81001; 80307; J2550

== ENCOUNTER 2017-06-29 13:54 | Outpatient (CLI) | payer MEDICAID ==
--- NOTE | 2017-06-29 14:05 | Non Stress Test Report ---
Non Stress Test Datetime Report Generated by CPN: 06/29/2017 14:05 DEMOGRAPHIC EGA NST: 34.3 INDICATION Indication for Study: Ordered by Provider MONITORING Monitor Explained: Monitor Explained; Test Explained; Patient Verbalized Understanding Time on Monitor: 06/25/2017 20:05 Time off Monitor: 06/25/2017 21:34 NST Duration: 89 NST INTERVENTIONS NST Interventions: IV Fluids; Reposition Patient Physician Notified NST: Dr. Montano BABY A: [id number] Movement : Present Contraction Frequency : x2 FHR Baseline : 120 Accelerations : 15X15 Decelerations : None Variability : Moderate 6-25bpm NST Review: Meets Criteria for Reactive NST NST Review and Verified By : LUCIA DANG Results: Reactive NST REPORT Report Trigger: Send Report
[2017-06-29 14:39] LABS: APPEARANCE,URINE CLEAR; BILIRUBIN,URINE NEGATIVE (NEGATIVE); COLOR,URINE YELLOW; GLUCOSE, URINE NEGATIVE (NEGATIVE); KETONES,URINE NEGATIVE (NEGATIVE); LEUKOCYTE ESTERASE,URINE TRACE (NEGATIVE); NITRITE,URINE NEGATIVE (NEGATIVE); PROTEIN,URINE NEGATIVE (NEGATIVE); URINE SPECIFIC GRAVITY 1.014; UROBILINOGEN,URINE NEGATIVE mg/dL (<2.0)
[2017-06-29 14:55] LABS: URINE AMPHETAMINES SCREEN NEGATIVE; URINE BARBITURATES SCREEN NEGATIVE; URINE BENZODIAZEPINES SCREEN NEGATIVE; URINE COCAINE SCREEN NEGATIVE; URINE MARIJUANA (THC) SCREEN NEGATIVE; URINE METHADONE SCREEN NEGATIVE; URINE PHENCYCLIDINE SCREEN NEGATIVE
[2017-06-29 15:01] LABS: AMNISURE (ROM) NEGATIVE (NEGATIVE)
== END 2017-06-29 15:23 | disposition home or self-care (01) ==
LOC: LC 13:54
PROVIDERS: ATTEND Obstetrics & Gynecology
PROC: 4A1HXCZ Monitoring of Products of Conception, Cardiac Rate, External Approach (ICD-10-PCS; principal; 2017-06-29)
DX: O21.2 Late vomiting of pregnancy (principal); O99.333 Smoking (tobacco) complicating pregnancy, third trimester; F17.210 Nicotine dependence, cigarettes, uncomplicated; Z3A.35 35 weeks gestation of pregnancy
CPT/HCPCS: 59025; 80307; 81001; 84112

== ENCOUNTER 2017-07-18 23:28 | Outpatient (CLI) | payer MEDICAID ==
--- NOTE | 2017-07-18 23:37 | Non Stress Test Report ---
Non Stress Test Datetime Report Generated by CPN: 07/18/2017 23:36 DEMOGRAPHIC EGA NST: 35.0 INDICATION Indication for Study: Ordered by Provider MONITORING Monitor Explained: Monitor Explained; Test Explained; Patient Verbalized Understanding Time on Monitor: 06/29/2017 14:46 Time off Monitor: 06/29/2017 15:13 NST Duration: 27 NST INTERVENTIONS NST Interventions: None Physician Notified NST: P. Mccoy, CNM BABY A: [id number] BABY A Movement : Present Contraction Frequency : none FHR Baseline : 135 Accelerations : 15X15 Decelerations : None Variability : Moderate 6-25bpm NST Review: Meets Criteria for Reactive NST NST Review and Verified By : Mikel Marin RNCrow NST Results: Reactive NST REPORT Report Trigger: Send Report
[2017-07-19 00:17] LABS: APPEARANCE,URINE SLIGHTLY-CLOUDY; BILIRUBIN,URINE NEGATIVE (NEGATIVE); COLOR,URINE AMBER; GLUCOSE, URINE NEGATIVE (NEGATIVE); KETONES,URINE TRACE mg/dL (NEGATIVE); LEUKOCYTE ESTERASE,URINE SMALL (NEGATIVE); NITRITE,URINE NEGATIVE (NEGATIVE); PROTEIN,URINE 30 mg/dL (NEGATIVE); URINE SPECIFIC GRAVITY 1.024
[2017-07-19 00:40] LABS: URINE AMPHETAMINES SCREEN NEGATIVE; URINE BARBITURATES SCREEN NEGATIVE; URINE BENZODIAZEPINES SCREEN NEGATIVE; URINE COCAINE SCREEN NEGATIVE; URINE MARIJUANA (THC) SCREEN NEGATIVE; URINE METHADONE SCREEN NEGATIVE; URINE PHENCYCLIDINE SCREEN NEGATIVE
[2017-07-19] MEDS ORDERED: PROMETHAZINE HCL 25 MG TABLET PO ONE (01:47)
[2017-07-19] MEDS ORDERED: PROMETHAZINE HCL 25 MG TABLET ONE (01:50)
--- NOTE | 2017-07-19 02:02 | Non Stress Test Report ---
Non Stress Test Datetime Report Generated by CPN: 07/19/2017 02:02 DEMOGRAPHIC Test Number: 4 EGA NST: 37.5 INDICATION Indication for Study: Ordered by Provider; Other Indication for Study (NST) Other: LC URINE RESULTS Urine Protein, NST: Negative Urine Ketones - NST: Positive Urine Glucose - NST: Negative Urine Blood - NST: Negative MONITORING Monitor Explained: Monitor Explained; Test Explained; Patient Verbalized Understanding Time on Monitor: 07/18/2017 23:48 Time off Monitor: 07/19/2017 01:38 NST Duration: 110 NST INTERVENTIONS NST Interventions: PO Hydration; Reposition Patient Physician Notified NST: Dr. Montano BABY A Movement : Present Contraction Frequency : 2-8 FHR Baseline : 130 Accelerations : 15X15 Decelerations : None Variability : Moderate 6-25bpm NST Review: Meets Criteria for Reactive NST NST Review and Verified By : JELENA Saldivar NST Results: Reactive NST REPORT Report Trigger: Send Report
[2017-07-19 02:45] LABS: CHLAM PCR NOT DETECTED (NOT DETECT); GON PCR DETECTED (NOT DETECT)
== END 2017-07-19 02:09 | disposition home or self-care (01) ==
LOC: LC 23:28
PROVIDERS: ATTEND Obstetrics & Gynecology
PROC: 4A1HXCZ Monitoring of Products of Conception, Cardiac Rate, External Approach (ICD-10-PCS; principal; 2017-07-18)
DX: O47.1 False labor at or after 37 completed weeks of gestation (principal); Z3A.37 37 weeks gestation of pregnancy
CPT/HCPCS: 59025; 81005; 80307; 87491; 87591; J3490; 87081

== ENCOUNTER 2017-07-19 16:00 | Outpatient (CLI) | payer MEDICAID ==
[2017-07-19] MEDS ORDERED: CEFTRIAXONE INJ 250 MG VIAL IM ONE (16:18)
[2017-07-19] MEDS ORDERED: CEFTRIAXONE INJ 1000 MG VIAL ONE (16:23)
[2017-07-19] MEDS ORDERED: LIDOCAINE 1% INJ-PF (10 MG/ML) 30 ML SDV ONE (16:24)
[2017-07-19 16:31] LABS: APPEARANCE,URINE SLIGHTLY-CLOUDY; BILIRUBIN,URINE NEGATIVE (NEGATIVE); COLOR,URINE YELLOW; GLUCOSE, URINE NEGATIVE (NEGATIVE); KETONES,URINE NEGATIVE (NEGATIVE); LEUKOCYTE ESTERASE,URINE TRACE (NEGATIVE); NITRITE,URINE NEGATIVE (NEGATIVE); PROTEIN,URINE NEGATIVE (NEGATIVE); URINE SPECIFIC GRAVITY 1.008; UROBILINOGEN,URINE NEGATIVE mg/dL (<2.0)
[2017-07-19 17:00] LABS: URINE AMPHETAMINES SCREEN NEGATIVE; URINE BARBITURATES SCREEN NEGATIVE; URINE BENZODIAZEPINES SCREEN NEGATIVE; URINE COCAINE SCREEN NEGATIVE; URINE MARIJUANA (THC) SCREEN NEGATIVE; URINE METHADONE SCREEN NEGATIVE; URINE PHENCYCLIDINE SCREEN NEGATIVE
[2017-07-19] MEDS ORDERED: AZITHROMYCIN 250 MG TABLET PO SCH (17:00)
== END 2017-07-19 18:12 | disposition home or self-care (01) ==
LOC: LC 16:00
PROVIDERS: ATTEND Obstetrics & Gynecology Gynecology
PROC: 4A1HXCZ Monitoring of Products of Conception, Cardiac Rate, External Approach (ICD-10-PCS; principal; 2017-07-19)
DX: O26.893 Other specified pregnancy related conditions, third trimester (principal); R10.2 Pelvic and perineal pain; Z3A.37 37 weeks gestation of pregnancy
CPT/HCPCS: 59025; 81005; 80307; J3490; J0696

== ENCOUNTER 2017-07-24 00:07 | Outpatient (CLI) | payer MEDICAID ==
--- NOTE | 2017-07-24 00:19 | Non Stress Test Report ---
Non Stress Test Datetime Report Generated by CPN: 07/24/2017 00:19 DEMOGRAPHIC EGA NST: 37.6 INDICATION Indication for Study: Other Indication for Study (NST) Other: LABOR CHECK MONITORING Monitor Explained: Monitor Explained; Test Explained; Patient Verbalized Understanding Time on Monitor: 07/19/2017 16:35 Time off Monitor: 07/19/2017 17:46 NST Duration: 71 NST INTERVENTIONS NST Interventions: PO Hydration; Reposition Patient Physician Notified NST: A Emmel CNM Physician Notified NST: A EMMEL, CNM BABY A: [id number] BABY A Movement : Present Contraction Frequency : OCC FHR Baseline : 135 Accelerations : 15X15 Decelerations : None Variability : Moderate 6-25bpm NST Review: Meets Criteria for Reactive NST NST Review and Verified By : Mikel BOWLES NST Results: Reactive NST REPORT Report Trigger: Send Report
[2017-07-24 00:42] LABS: APPEARANCE,URINE CLEAR; BILIRUBIN,URINE NEGATIVE (NEGATIVE); COLOR,URINE YELLOW; GLUCOSE, URINE NEGATIVE (NEGATIVE); KETONES,URINE 80 mg/dL (NEGATIVE); LEUKOCYTE ESTERASE,URINE SMALL (NEGATIVE); NITRITE,URINE NEGATIVE (NEGATIVE); PROTEIN,URINE NEGATIVE (NEGATIVE); URINE SPECIFIC GRAVITY 1.015
[2017-07-24] MEDS ORDERED: RINGERS SOLUTION,LACTATED 1,000 ML IV PRN (00:51)
[2017-07-24] MEDS ORDERED: ACETAMINOPHEN 325 MG TABLET PO ONE (00:53)
[2017-07-24] MEDS ORDERED: PROMETHAZINE HCL INJ 25 MG/1 ML VIAL IV ONE (00:54)
[2017-07-24] MEDS ORDERED: ACETAMINOPHEN 325 MG TABLET ONE (01:12)
[2017-07-24] MEDS ORDERED: PROMETHAZINE HCL INJ 25 MG/1 ML VIAL ONE (01:12)
[2017-07-24 01:44] LABS: URINE AMPHETAMINES SCREEN NEGATIVE; URINE BARBITURATES SCREEN NEGATIVE; URINE PHENCYCLIDINE SCREEN NEGATIVE
[2017-07-24 02:06] LABS: URINE BENZODIAZEPINES SCREEN NEGATIVE; URINE COCAINE SCREEN NEGATIVE; URINE MARIJUANA (THC) SCREEN NEGATIVE; URINE METHADONE SCREEN NEGATIVE
== END 2017-07-24 02:03 | disposition home or self-care (01) ==
LOC: LC 00:07
PROVIDERS: ATTEND Obstetrics & Gynecology
PROC: 4A1HXCZ Monitoring of Products of Conception, Cardiac Rate, External Approach (ICD-10-PCS; principal; 2017-07-24)
DX: O47.1 False labor at or after 37 completed weeks of gestation (principal); Z3A.38 38 weeks gestation of pregnancy
CPT/HCPCS: 81005; 80307; 59025; J3490; J2550

== ENCOUNTER 2017-07-29 22:53 | Outpatient (CLI) | payer MEDICAID ==
--- NOTE | 2017-07-29 22:58 | Non Stress Test Report ---
Non Stress Test Datetime Report Generated by CPN: 07/29/2017 22:57 DEMOGRAPHIC EGA NST: 38.4 INDICATION Indication for Study: Ordered by Provider MONITORING Monitor Explained: Monitor Explained; Test Explained; Patient Verbalized Understanding Time on Monitor: 07/24/2017 00:24 Time off Monitor: 07/24/2017 01:53 NST Duration: 89 NST INTERVENTIONS NST Interventions: PO Hydration; IV Fluids Physician Notified NST: curtis BABY A: [id number] BABY A Movement : Present Contraction Frequency : irregluar FHR Baseline : 140 Accelerations : Prolonged Decelerations : None Variability : Moderate 6-25bpm NST Review: Meets Criteria for Reactive NST NST Review and Verified By : suyapa DANG Results: Reactive NST REPORT Report Trigger: Send Report
[2017-07-29 23:34] LABS: APPEARANCE,URINE CLEAR; BILIRUBIN,URINE NEGATIVE (NEGATIVE); COLOR,URINE YELLOW; GLUCOSE, URINE NEGATIVE (NEGATIVE); KETONES,URINE TRACE mg/dL (NEGATIVE); LEUKOCYTE ESTERASE,URINE SMALL (NEGATIVE); NITRITE,URINE NEGATIVE (NEGATIVE); PROTEIN,URINE NEGATIVE (NEGATIVE); URINE SPECIFIC GRAVITY 1.011; UROBILINOGEN,URINE NEGATIVE mg/dL (<2.0)
[2017-07-29 23:59] LABS: URINE AMPHETAMINES SCREEN NEGATIVE; URINE BARBITURATES SCREEN NEGATIVE; URINE BENZODIAZEPINES SCREEN NEGATIVE; URINE COCAINE SCREEN NEGATIVE; URINE MARIJUANA (THC) SCREEN NEGATIVE; URINE METHADONE SCREEN NEGATIVE; URINE PHENCYCLIDINE SCREEN NEGATIVE
[2017-07-30] MEDS ORDERED: OXYCODONE-ACETAMINOPHEN 5-325 MG TABLET PO ONE (02:15)
[2017-07-30] MEDS ORDERED: OXYCODONE-ACETAMINOPHEN 5-325 MG TABLET ONE (02:26)
--- NOTE | 2017-07-30 03:47 | Non Stress Test Report ---
Non Stress Test Datetime Report Generated by CPN: 07/30/2017 03:47 DEMOGRAPHIC Test Number: 7 EGA NST: 39.2 INDICATION Indication for Study: Ordered by Provider VITAL SIGNS Temperature - NST: 98.0 Pulse - NST: 67 RESP - NST: 14 NBPSYS NST: 110 NBPDIA NST: 62 URINE RESULTS Urine Protein, NST: Negative Urine Ketones - NST: Positive Urine Glucose - NST: Negative Urine Blood - NST: Negative MONITORING Monitor Explained: Monitor Explained; Test Explained; Patient Verbalized Understanding Time on Monitor: 07/29/2017 23:11 Time off Monitor: 07/29/2017 23:45 NST Duration: 34 NST INTERVENTIONS NST Interventions: PO Hydration Physician Notified NST: Dr. Sergo BABY A Movement : Absent Contraction Frequency : 4-6 FHR Baseline : 135 Accelerations : 15X15 Decelerations : None Variability : Moderate 6-25bpm NST Review: Meets Criteria for Reactive NST NST Review and Verified By : B. Ring RN NST Results: Reactive NST COMMENTS NST Comments: audible and palpable movement felt NST REPORT Report Trigger: Send Report
== END 2017-07-30 02:30 | disposition home or self-care (01) ==
LOC: LC 22:53
PROVIDERS: ATTEND Obstetrics & Gynecology
PROC: 4A1HXCZ Monitoring of Products of Conception, Cardiac Rate, External Approach (ICD-10-PCS; principal; 2017-07-29)
DX: Z34.93 Encounter for supervision of normal pregnancy, unspecified, third trimester (principal)
CPT/HCPCS: 59025; 80307; 81005

== ENCOUNTER 2017-07-30 16:28 | Inpatient (IN) | payer MEDICAID ==
[2017-07-30] MEDS ORDERED: PENICILLIN G-K 5 MILLION UNIT VIAL ONE ×2 (16:53→20:40)
[2017-07-30] MEDS ORDERED: RINGERS SOLUTION,LACTATED 1,000 ML IV PRN (16:55)
[2017-07-30] MEDS ORDERED: PENICILLIN G POTASSIUM 5,000,000 UNIT in DEXTROSE 5%-WATER 100 ML IV ONE (16:55)
[2017-07-30] MEDS ORDERED: RINGERS SOLUTION,LACTATED 1,000 ML IV ONE (16:55)
[2017-07-30] MEDS ORDERED: OXYTOCIN/NORMAL SALINE 20 UNIT/1,000 ML RTUINJ ONE (17:00)
[2017-07-30] MEDS ORDERED: LIDOCAINE 1% INJ-PF (10 MG/ML) 30 ML SDV ONE (17:00)
[2017-07-30] MEDS ORDERED: MISOPROSTOL 0.2 MG TABLET ONE (17:00)
[2017-07-30] MEDS ORDERED: FENTANYL CITRATE INJ/PF 100 MCG/2 ML AMPUL ONE (17:11)
[2017-07-30] MEDS ORDERED: PHENYLEPHRINE HCL INJ/PF 10 MG/1 ML SDV ONE (17:12)
[2017-07-30] MEDS ORDERED: BUPIVACAINE HCL 0.25 % INJ/PF (2.5 MG/1 ML) 30 ML VIAL ONE (17:12)
[2017-07-30] MEDS ORDERED: FENTANYL/BUPIVACAINE/NS/PF 300 MCG/150 ML RTUINJ EPI ONE (17:12)
[2017-07-30] MEDS ORDERED: EPHEDRINE SULFATE INJ 50 MG/1 ML AMPULE ONE (17:12)
[2017-07-30 17:13] LABS: ABSOLUTE BASOPHILS # (AUTO) 0.1 10^3/uL (0.0-0.2); ABSOLUTE LYMPHOCYTES (AUTO) 2.2 10^3/uL (0.5-4.7); ABSOLUTE MONOCYTES (AUTO) 0.9 10^3/uL (0.1-1.4); ABSOLUTE NEUT (AUTO) 13.5 10^3/uL (1.7-8.2); BASOPHILS % (AUTO) 0.6 % (0-2); EOSINOPHILS % (AUTO) 0.3 % (0-6); HEMATOCRIT 34.3 % (36.0-47.0); HEMOGLOBIN 11.6 g/dL (12.0-15.5); MEAN CORPUSCULAR HEMOGLOBIN 30.3 pg (27.0-33.4); MEAN CORPUSCULAR HGB CONC 33.7 g/dL (32.0-36.0); MEAN CORPUSCULAR VOLUME 90 fl (80-97); MONOCYTES % (AUTO) 5.2 % (3-13); PLATELET COUNT 227 10^3/uL (150-450); RED BLOOD COUNT 3.82 10^6/uL (3.72-5.28); RED CELL DISTRIBUTION WIDTH 13.1 % (11.5-14.0); SEGMENTED NEUTROPHILS % (AUTO) 80.9 % (42-78); TOTAL CELLS COUNTED % (AUTO) 100 %; WHITE BLOOD COUNT 16.6 10^3/uL (4.0-10.5)
[2017-07-30] MEDS ORDERED: LIDOCAINE 1.5%/EPINEPHRINE INJ-PF 30 ML SDV ONE (17:13)
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
[2017-07-30] MEDS ORDERED: PENICILLIN G-K 5 MILLION UNIT VIAL IV PRN (17:15)
[2017-07-30] MEDS ORDERED: LIDOCAINE 1% INJ-PF (10 MG/ML) 30 ML SDV INJ PRN (17:18)
[2017-07-30] MEDS ORDERED: OXYTOCIN/NORMAL SALINE 20 UNIT/1,000 ML RTUINJ IV PRN ×3 (17:18→21:48)
[2017-07-30] MEDS ORDERED: EPHEDRINE SULFATE INJ 50 MG/1 ML AMPULE IV PRN (17:18)
[2017-07-30] MEDS ORDERED: BENZOIN/ALOE VERA/STORAX/TOLU TINCTURE 60 ML TP PRN (17:18)
[2017-07-30] MEDS ORDERED: MISOPROSTOL 0.2 MG TABLET PR PRN (17:18)
[2017-07-30] MEDS ORDERED: BUPIVACAINE HCL 0.25 % INJ/PF (2.5 MG/1 ML) 30 ML VIAL INFIL ONE (17:18)
[2017-07-30] MEDS ORDERED: FENTANYL/BUPIVACAINE/NS/PF 200 MCG/100 ML RTUINJ EPI PRN (17:18)
[2017-07-30 18:06] LABS: APPEARANCE,URINE CLEAR; BILIRUBIN,URINE NEGATIVE (NEGATIVE); COLOR,URINE YELLOW; GLUCOSE, URINE 50 mg/dL (NEGATIVE); KETONES,URINE NEGATIVE (NEGATIVE); LEUKOCYTE ESTERASE,URINE NEGATIVE (NEGATIVE); NITRITE,URINE NEGATIVE (NEGATIVE); PROTEIN,URINE NEGATIVE (NEGATIVE); URINE SPECIFIC GRAVITY 1.018; UROBILINOGEN,URINE NEGATIVE mg/dL (<2.0)
[2017-07-30 18:23] LABS: URINE AMPHETAMINES SCREEN NEGATIVE; URINE BARBITURATES SCREEN NEGATIVE; URINE BENZODIAZEPINES SCREEN NEGATIVE; URINE COCAINE SCREEN NEGATIVE; URINE MARIJUANA (THC) SCREEN NEGATIVE; URINE METHADONE SCREEN NEGATIVE; URINE PHENCYCLIDINE SCREEN NEGATIVE
[2017-07-30] MEDS ORDERED: PENICILLIN G POTASSIUM 2,500,000 UNIT in DEXTROSE 5%-WATER 50 ML IV SCH (20:58)
[2017-07-30] MEDS ORDERED: NA PHOS,M-B/NA PHOS,DI-BA (ADULT) 133 ML ENEMA PR PRN (21:48)
[2017-07-30] MEDS ORDERED: PROMETHAZINE HCL 25 MG TABLET PO PRN (21:48)
[2017-07-30] MEDS ORDERED: MAGNESIUM HYDROXIDE SUSP 30 ML UDCUP PO PRN (21:48)
[2017-07-30] MEDS ORDERED: ACETAMINOPHEN 650 MG SUPP.RECT PR PRN (21:48)
[2017-07-30] MEDS ORDERED: DIPH/PERTUSS(ACELL)/TETANUS VAC/PF 0.5 ML SYR (>=10YO) IM PRN (21:48)
[2017-07-30] MEDS ORDERED: DIPHENHYDRAMINE HCL 25 MG CAPSULE PO PRN (21:48)
[2017-07-30] MEDS ORDERED: BENZOCAINE/MENTHOL AEROSOL SPRAY 56 ML TOP PRN (21:48)
[2017-07-30] MEDS ORDERED: MEASLES,MUMPS&RUBELLA VACC/PF 0.5 ML VIAL SUBCUT PRN (21:48)
[2017-07-30] MEDS ORDERED: ZOLPIDEM TARTRATE 5 MG TABLET PO PRN (21:48)
[2017-07-30] MEDS ORDERED: PROMETHAZINE HCL INJ 25 MG/1 ML VIAL IV PRN (21:48)
[2017-07-30] MEDS ORDERED: PROMETHAZINE HCL 25 MG SUPP.RECT PR PRN (21:48)
[2017-07-30] MEDS ORDERED: ACETAMINOPHEN WITH CODEINE #3 TABLET PO PRN (21:48)
[2017-07-30] MEDS ORDERED: DIBUCAINE 1% OINTMENT 28 GM TP PRN (21:48)
[2017-07-30] MEDS ORDERED: PSEUDOEPHEDRINE HCL 30 MG TABLET PO PRN (21:48)
[2017-07-30] MEDS ORDERED: GLYCERIN/WITCH HAZEL LEAF 1 EACH MED..PAD TP PRN (21:48)
[2017-07-30] MEDS ORDERED: IBUPROFEN 800 MG TABLET PO SCH (22:00)
[2017-07-30] MEDS ORDERED: IBUPROFEN 800 MG TABLET ONE (23:31)
[2017-07-31] MEDS: FAMOTIDINE 20 MG TABLET PO SCH ×3 (02:09→23:23)
[2017-07-31] MEDS: IBUPROFEN 800 MG TABLET PO SCH ×3 (06:17→23:24)
[2017-07-31 07:26] LABS: HEMATOCRIT 28.8 % (36.0-47.0); HEMOGLOBIN 9.9 g/dL (12.0-15.5); MEAN CORPUSCULAR HEMOGLOBIN 30.9 pg (27.0-33.4); MEAN CORPUSCULAR HGB CONC 34.2 g/dL (32.0-36.0); MEAN CORPUSCULAR VOLUME 90 fl (80-97); PLATELET COUNT 196 10^3/uL (150-450); RED BLOOD COUNT 3.19 10^6/uL (3.72-5.28); RED CELL DISTRIBUTION WIDTH 12.8 % (11.5-14.0); WHITE BLOOD COUNT 15.3 10^3/uL (4.0-10.5)
[2017-07-31] MEDS ORDERED: DOCUSATE SODIUM 100 MG CAPSULE PO SCH (10:00)
[2017-07-31] MEDS ORDERED: PRENATAL VITAMIN W DHA CAPSULE PO SCH (10:00)
[2017-07-31] MEDS ORDERED: SENNOSIDES/DOCUSATE 8.6-50 MG 1 EACH TABLET PO SCH (10:00)
[2017-07-31] MEDS: FERROUS SULFATE 325 MG TABLET PO SCH ×2 (10:35→19:35)
--- NOTE | 2017-07-31 10:57 | PDOC PROGRESS REPORT ---
Subjective-OB Progress Note for:: 07/31/17 Subjective: s/p day #1 Pt denies concerns, states lochia is stable, pain well controlled, voiding without difficulty. Physical Exam (OB) Vital Signs: Temp Pulse Resp BP Pulse Ox 98.1 F 63 18 125/56 L 99 07/31/17 07:54 07/31/17 07:54 07/31/17 07:54 07/31/17 07:54 07/31/17 07:54 Intake & Output 07/30/17 07/31/17 08/01/17 06:59 06:59 06:59 Weight 87.3 kg - Lochia Lochia Amount: Moderate 25-50 ml Lochia Color: Rubra/Red - Abdomen Description: Soft, Flat Hernia Present: No Fundal Description: Firm, Midline Fundal Height: u/u - u/2 Objective-Diagnostic Laboratory: 07/31/17 07:16 07/30/17 07/30/17 07/30/17 16:55 16:55 17:45 WBC 16.6 H RBC 3.82 Hgb 11.6 L Hct 34.3 L MCV 90 MCH 30.3 MCHC 33.7 RDW 13.1 Plt Count 227 Seg Neutrophils % 80.9 H Lymphocytes % 13.0 Monocytes % 5.2 Eosinophils % 0.3 Basophils % 0.6 Absolute Neutrophils 13.5 H Absolute Lymphocytes 2.2 Absolute Monocytes 0.9 Absolute Eosinophils 0.0 Absolute Basophils 0.1 Urine Color YELLOW Urine Appearance CLEAR Urine pH 6.0 Ur Specific [place] 1.018 Urine Protein NEGATIVE Urine Glucose (UA) 50 H Urine Ketones NEGATIVE Urine Blood NEGATIVE Urine Nitrite NEGATIVE Ur Leukocyte Esterase NEGATIVE Blood Type O POSITIVE Antibody Screen NEGATIVE 07/31/17 07:16 WBC 15.3 H RBC 3.19 L Hgb 9.9 L Hct 28.8 L MCV 90 MCH 30.9 MCHC 34.2 RDW 12.8 Plt Count 196 Seg Neutrophils % Lymphocytes % Monocytes % Eosinophils % Basophils % Absolute Neutrophils Absolute Lymphocytes Absolute Monocytes Absolute Eosinophils Absolute Basophils Urine Color Urine Appearance Urine pH Ur Specific [place] Urine Protein Urine Glucose (UA) Urine Ketones Urine Blood Urine Nitrite Ur Leukocyte Esterase Blood Type Antibody Screen Assessment and Plan(PN) - Assessment and Plan (1) Vaginal delivery Is this a current diagnosis for this admission?: Yes Plan: routine pp care (2) Acute blood loss anemia Is this a current diagnosis for this admission?: Yes Plan: increase dietary iron ferrous sulfate - Time Spent with Patient Time with patient: Less than 15 minutes Medications reviewed and adjusted accordingly: Yes - Disposition Anticipated Discharge: Home
[2017-08-01] MEDS: IBUPROFEN 800 MG TABLET PO SCH (05:35)
--- NOTE | 2017-08-01 09:50 | PDOC DISCHARGE SUMMARY ---
Final Diagnosis Discharge Date: 08/01/17 - Final Diagnosis (1) Acute blood loss anemia Is this a current diagnosis for this admission?: Yes (2) Vaginal delivery Is this a current diagnosis for this admission?: Yes Discharge Data - Discharge Medication Home Medications: Ferrous Sulfate [Feosol 325 mg Tablet] 325 mg PO BID tablet 08/01/17 Ibuprofen [Motrin 800 mg Tablet] 800 mg PO Q8 tablet 08/01/17 Vit/Dha [ Multi + Dha Capsule] 1 cap PO DAILY capsule Procedures: NST Intrapartum Procedure(s): Spontaneous Vaginal Delivery - Diagnosis Test Laboratory: Temp Pulse Resp BP Pulse Ox 97.9 F 66 17 126/67 H 99 08/01/17 08:21 08/01/17 08:21 08/01/17 08:21 08/01/17 08:21 08/01/17 08:21 07/30/17 07/30/17 07/31/17 16:55 17:45 07:16 RBC 3.82 3.19 L Hgb 11.6 L 9.9 L Hct 34.3 L 28.8 L Urine Opiates Screen NEGATIVE - Discharge information/Instructions Discharge Activity: Balance Activity w/Rest, Pelvic Rest Discharge Diet: Regular Disposition: HOME, SELF-CARE Follow up with: [facility] in: 4, Weeks
[2017-08-01 10:02] VITALS: BP 126/60
--- NOTE | 2017-08-22 10:33 | Delivery Summary ---
Del Sum A-C Datetime Report Generated by CPN: 08/22/2017 10:33 DELIVERY PERSONNEL DELIVERY PERSONNEL: [id number] Delivery Doctor:: Christopher Weeks, Labor and Delivery Nurse:: Tonja Bonilla, personal banking assistant Nurse:: Vandana Holbrook, RNC Nursery Nurse:: Diamond Jane, RN MATERNAL INFORMATION Delivery Anesthesia: Epidural Medications After Delivery: Pitocin Drip 20 Units/1000ml NSS Maternal Complications: None LABOR SUMMARY EDC: 08/03/2017 00:00 No. Babies in Womb: 1 Labor Anesthesia: Epidural LABOR INFORMATION Reason for Induction: Not Applicable Onset of Labor: 07/30/2017 19:42 Complete Dilatation: 07/30/2017 21:28 Oxytocin: Augmentation Group B Beta Strep: Positive Antibiotics # of Doses: 2 Antibiotics Time of Last Dose: 2130 Name of Antibiotic Given: PCN Steroids Given: None Reason Steroids Not Administered: Not Applicable MEMBRANES Membranes Rupture Method: Artificial Rupture of Membranes: 07/30/2017 20:14 Length of Rupture (hr): 1.43 Amniotic Fluid Color: Clear Amniotic Fluid Amount: Moderate Amniotic Fluid Odor: Normal STAGES OF LABOR Stage 1 hr: 1 Stage 1 min: 46 Stage 2 hr: 0 Stage 2 min: 12 Stage 3 hr: 0 Stage 3 min: 3 Total Time in Labor hr: 2 Total Time in Labor min: 1 VAGINAL DELIVERY Episiotomy: None Laceration #1: None Laceration Extension #1: N/A Laceration Repair: Not Applicable Sponge Count Correct: Yes Sharps Count Correct: Yes CSECTION DELIVERY Primary Indication: N/A Secondary Indication: N/A CSection Incidence: N/A Labor: N/A Elective: N/A CSection Incision: N/A BABY A INFORMATION Infant Delivery Date/Time: 07/30/2017 21:40 Method of Delivery: Vaginal Born in Route : No Born in Route : No : N/A : N/A Forceps: N/A Forceps: N/A Vacuum Extraction: N/A Vacuum Extraction: N/A Shoulder Dystocia : No Shoulder Dystocia : No PRESENTATION/POSITION BABY A Presentation: Cephalic Presentation: Unable to Assess Presentation: Cephalic Presentation: Cephalic Cephalic Presentation: Vertex Vertex Position: Right Occipital Posterior Breech Presentation: N/A PLACENTA INFORMATION BABY A Placenta Delivery Time : 07/30/2017 21:43 Placenta Method of Delivery: Spontaneous Placenta Status: Delivered SCORES BABY A Heart Rate 1 min: >100 bpm Resp Effort 1 min: Good Cry Reflex Irritability 1 min: Cough or Sneeze or Pulls Away Muscle Tone 1 min: Active Motion Color 1 min: Body [place], Extremities Blue Resuscitation Effort 1 min: Tactile Stimulation SCORE 1 MIN: 9 Heart Rate 5 min: >100 bpm Resp Effort 5 min: Good Cry Reflex Irritability 5 min: Cough or Sneeze or Pulls Away Muscle Tone 5 min: Active Motion Color 5 min: Body [place], Extremities Blue SCORE 5 MIN: 9 INFORMATION BABY A Gestational Age at Delivery: 39.3 Gestational Age at Delivery: 39.3 Gestational Status: Full Term- 39- 40.6 Weeks Outcome : Liveborn Outcome : Liveborn Infant Condition : Stable Condition : Stable Sex: Female IDENTIFICATION BABY A Infant Verification Date/Time: 07/30/2017 22:01 ID Band Number: [id number] Mother's Name Verified: Yes Infant RN Verifying : E Jilek RN Additional Verifying Personnel: D Bellavance RNC WEIGHT/LENGTH BABY A Birthweight (gm): 2920 Weight (lb): 6 Infant Weight (oz): 7 Length (in): 18.50 Infant Length (cm): 46.99 CORD INFORMATION BABY A No. Cord Vessels: 3 Nuchal Cord : N/A Cord Blood Taken: Yes-For Eval (Mom's Blood Type - or O+) Suction: None ASSESSMENT BABY A Complications: None Physical Findings at Delivery: Within Normal Limits Respirations: Appears Normal Skin to Skin: Yes Skin to Skin: Yes Bottom Turning Lathe Turner/ALS Called : No Care By: D Sheron RNC Transferred To: [place] [facility] BABY B INFORMATION : N/A SIGNATURES Signature: with User ID: [email or web address] : I was personally available for consultation and serving as supervising physician for the MLP.
== END 2017-08-01 11:13 | disposition home or self-care (01) | DRG 775 ==
LOC: LC 16:28 → LR 16:57 → 2S 23:49
PROVIDERS: ADMIT Obstetrics & Gynecology Gynecology; ATTEND Obstetrics & Gynecology Gynecology
PROC: 10E0XZZ Delivery of Products of Conception, External Approach (ICD-10-PCS; principal; 2017-07-30)
PROC: 10907ZC Drainage of Amniotic Fluid, Therapeutic from Products of Conception, Via Natural or Artificial Opening (ICD-10-PCS; 2017-07-30)
PROC: 4A1HXCZ Monitoring of Products of Conception, Cardiac Rate, External Approach (ICD-10-PCS; 2017-07-30)
DX: O99.824 Streptococcus B carrier state complicating childbirth (principal); D62 Acute posthemorrhagic anemia; O99.02 Anemia complicating childbirth; O99.334 Smoking (tobacco) complicating childbirth; F17.210 Nicotine dependence, cigarettes, uncomplicated; O99.52 Diseases of the respiratory system complicating childbirth; J45.909 Unspecified asthma, uncomplicated; O99.344 Other mental disorders complicating childbirth; F41.9 Anxiety disorder, unspecified; F32.9 Major depressive disorder, single episode, unspecified; Z88.8 Allergy status to other drugs, medicaments and biological substances; Z3A.39 39 weeks gestation of pregnancy; Z37.0 Single live birth
CPT/HCPCS: 36415; 80307; 81005; 85025; 85027; 86592; 86850; 86900; 86901; J2370; J2540; J2590; J3010; J3490